=== PATIENT | male | born 1965 | race Caucasian/White ===

== ENCOUNTER 2019-01-10 16:53 | Emergency (ER) | payer OTHER ==
[~2019-01-10] VITALS: Ht 188 cm; Wt 128.5 kg
[2019-01-10 16:57] VITALS: BP 129/99
--- NOTE | 2019-01-10 17:26 | NUR ---
PT. IS A & O X 4 WITH C/O AFIB SINCE LAST NIGHT. PT. DENIED C/O CHEST PAIN OR SOB. CP MONITOR IN PLACE AND IV ACCESS ESTABLISHED. PT.'S 12 LEAD EKG WAS DONE. PT. IS PINK, WARM AND DRY. LUNGS ARE CTA. MM ARE PINK AND MOIST WITH PULSES +[address] WHITNEY AT THE BEDSIDE TO DISCUSS THE RISKS AND BENEFITS OF SYNCHRONIZED CARDIOVERSION WITH THE PT. PT. VERBALIZED UNDERSTANDING. PT. IS RESTING WITH THE HOB ELEVATED AT 30 DEGREES. SIDERAILS REMAIN UP X 2 WITH THE CALL LIGHT IN PLACE.
[2019-01-10] MEDS ORDERED: SODIUM CHLORIDE FLUSH 10ML SYR IVF ONE (17:30)
[2019-01-10] MEDS ORDERED: PROPOFOL 10 MG/ML, 20ML IVP ONE (17:30)
[2019-01-10 17:37] LABS: BASOPHILS # (AUTO) 0.02 x10^3/uL (0-0.1); BASOPHILS % (AUTO) 0 % (0-1); EOSINOPHILS # (AUTO) 0.15 x10^3/uL (0-0.4); EOSINOPHILS % (AUTO) 2 % (1-7); LYMPHOCYTES # (AUTO) 1.59 x10^3/uL (1-3.4); LYMPHOCYTES % (AUTO) 22 % (22-44); MD NO; MEAN CORPUSCULAR HEMOGLOBIN 29.6 pg (27.5-34.5); MEAN CORPUSCULAR HGB CONC 33.7 g/dL (33.2-36.2); MEAN CORPUSCULAR VOLUME 87.8 fL (81-97); MEAN PLATELET VOLUME 7.5 fL (7.4-10.4); MONOCYTES # (AUTO) 0.45 x10^3/uL (0.2-0.8); MONOCYTES % (AUTO) 6 % (2-9); NEUTROPHILS # (AUTO) 4.96 x10^3/uL (1.8-6.8); NEUTROPHILS % (AUTO) 69 % (42-75); PLATELET COUNT 297 x10^3/uL (130-400); RED BLOOD COUNT 5.47 x10^6/uL (4.38-5.82); RED CELL DISTRIBUTION WIDTH 14.2 % (9.4-14.8)
[2019-01-10] MEDS ORDERED: PROPOFOL 10 MG/ML, 20ML ONE (17:39)
[2019-01-10 17:46] LABS: ALBUMIN 3.8 g/dL (3.4-5.0); ANION GAP 6 mmol/L (5-15); CALCIUM 8.7 mg/dL (8.5-10.1); CHLORIDE 110 mmol/L (98-107); CREATININE 1.13 mg/dL (0.7-1.3)
[2019-01-10 17:50] LABS: TROPONIN I < 0.015 ng/mL (0.000-0.045)
[2019-01-10] MEDS ORDERED: APIXABAN 5 MG TABLET PO STA (18:34)
--- NOTE | 2019-01-10 18:43 | NUR ---
PT HAD ELECTIVE CARDIOVERSION AFIB TO SR AFTER 1 BIPASIC 200 [address] SHOCK PT REMAINED ABOVE 90% THROUGHOUT PROCEDURE COMPLETELY AO4 WITH IN 10 MIN OF CV
[2019-01-10] MEDS ORDERED: APIXABAN 5 MG TABLET ONE (18:54)
== END 2019-01-10 19:22 | disposition home or self-care (01) ==
LOC: ED 19:16
DX: I48.0 Paroxysmal atrial fibrillation (principal)
CPT/HCPCS: 36415; 80048; 82040; 84484; 85025; 92960; 93005; 99152; 99285; J2704